=== PATIENT | female | born 2000 | race Caucasian/White ===

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

== ENCOUNTER 2019-03-24 18:18 | Emergency (ER) | payer OTHER | END 2019-03-24 22:44 | disposition home or self-care (01) | LOC: FTE 18:18 | DX: M94.0 Chondrocostal junction syndrome [Tietze] (principal) | CPT/HCPCS: 71045; 99283-25 ==

== ENCOUNTER 2019-03-30 19:15 | Emergency (ER) | payer OTHER ==
[2019-03-30 22:00] LABS: ADD MAN DIFF? NO
[2019-03-30] MEDS: SOD CHLORIDE 0.9% 1,000 ML IV (22:00)
[2019-03-30] MEDS: ONDANSETRON 4 MG INJ IV (22:00)
[2019-03-30] MEDS: ACETAMINOPHEN 650MG/20.3ML CUP PO (22:00)
[2019-03-30 22:02] LABS: WHITE BLOOD COUNT 10.4 10^3/ul (4.8-10.8)
[2019-03-30 22:02] LABS: BASOPHIL # 0.1 10^3/ul (0.0-0.1); BASOPHILS % 0.9 % (0.0-2.0); EOSINOPHILS % 0.4 % (0.0-7.0); HEMATOCRIT 44.4 % (37.0-47.0); HEMOGLOBIN 14.9 g/dl (12.0-16.0); LYMPHOCYTES # 1.8 10^3/ul (0.8-2.9); LYMPHOCYTES % 16.8 % (18.0-55.0); MEAN CORPUSCULAR HEMOGLOBIN 30.4 pg (29.0-33.0); MEAN CORPUSCULAR HGB CONC 33.6 g/dl (32.0-37.0); MEAN CORPUSCULAR VOLUME 90.6 fl (72.0-104.0); MEAN PLATELET VOLUME 10.4 fl (7.4-10.4); MONOCYTES % 9.4 % (0.0-13.0); NEUTROPHIL # 7.5 10^3/ul (1.6-7.5); NEUTROPHILS % 71.8 % (30.0-74.0); PLATELET COUNT 345 10^3/UL (140-415); RED CELL DISTRIBUTION WIDTH 12.9 % (11.5-14.5)
[2019-03-30 22:05] LABS: ADD UMIC YES; UR ASCORBIC ACID NEGATIVE (NEGATIVE); UR BACTERIA FEW /HPF (NONE SEEN); UR BILIRUBIN (Dip) NEGATIVE (NEGATIVE); UR BLOOD (Dip) 1+ mg/dL (NEGATIVE); UR CLARITY SLIGHTLY CLOUDY (CLEAR); UR COLOR YELLOW (YELLOW); UR GLUCOSE (Dip) NEGATIVE (NEGATIVE); UR KETONES (Dip) TRACE mg/dL (NEGATIVE); UR LEUKOCYTE ESTERASE (Dip) 2+ Leu/ul (NEGATIVE); UR NITRITE (Dip) NEGATIVE (NEGATIVE); UR RBC 11 /HPF (0-5); UR SPECIFIC GRAVITY (Dip) 1.023 (1.003-1.030); UR SQUAMOUS EPITHELIAL CELL FEW /HPF (FEW); UR TOTAL PROTEIN (Dip) NEGATIVE (NEGATIVE); UR UROBILINOGEN (Dip) 2+ mg/dL (NEGATIVE); UR WBC 8 /HPF (0-5)
[2019-03-30 22:26] LABS: ALANINE AMINOTRANSFERASE 79 IU/L (13-69); ALBUMIN 4.6 g/dl (3.3-4.9); ALBUMIN/GLOBULIN RATIO 1.27; ALKALINE PHOSPHATASE 140 IU/L (42-121); ANION GAP 12 (5-13); ASPARTATE AMINO TRANSFERASE 41 IU/L (15-46); BILIRUBIN,INDIRECT 0.4 mg/dl (0-1.1); BILIRUBIN,TOTAL 0.4 mg/dl (0.2-1.3); BLOOD UREA NITROGEN 9 mg/dl (7-20); CALCIUM 9.5 mg/dl (8.4-10.2); CARBON DIOXIDE 24 mmol/L (21-31); CHLORIDE 100 mmol/L (97-110); CREATININE 0.64 mg/dl (0.44-1.00); Estimated GFR > 60 mL/min (>60); GLUCOSE 95 mg/dl (70-220); SODIUM 136 mmol/L (135-144); TOTAL PROTEIN 8.2 g/dl (6.1-8.1)
[2019-03-30] MEDS ORDERED: CEFTRIAXONE 1 GM/50 ML (PMX) 50 ML IVPB (23:30)
[2019-03-30] MEDS: CEFTRIAXONE 1 GM INJ IM (23:43)
[2019-03-30] MEDS: LIDOCAINE 1% (MPF) 5 ML VIAL INFIL (23:43)
== END 2019-03-30 23:47 | disposition home or self-care (01) ==
LOC: FTE 19:15
DX: R51 Headache (principal); R50.9 Fever, unspecified; R11.0 Nausea
CPT/HCPCS: 80053; 81001; 81025; 83605; 83735; 85025; 87040-91; 96372; 96374; 99284-25

== ENCOUNTER 2019-04-07 18:59 | Emergency (ER) | payer OTHER ==
[2019-04-07] MEDS: BENZONATATE 100 MG CAP PO (21:58)
[2019-04-07] MEDS: LIDOCAINE 1% (MDV) 20 ML INJ SC (23:03)
[2019-04-07] MEDS: CEFTRIAXONE 1 GM INJ IM (23:03)
[2019-04-07] MEDS: AZITHROMYCIN 500 MG TAB PO (23:03)
== END 2019-04-07 23:38 | disposition home or self-care (01) ==
LOC: FTE 18:59
DX: J18.1 Lobar pneumonia, unspecified organism (principal)
CPT/HCPCS: 71046; 81025; 96372; 99284-25

== ENCOUNTER 2019-07-03 12:14 | Emergency (ER) | payer OTHER | END 2019-07-03 14:08 | disposition home or self-care (01) | LOC: FTE 12:14 | DX: M25.561 Pain in right knee (principal) | CPT/HCPCS: 73562; 99283-25 ==